=== PATIENT | female | born 1965 | race Caucasian/White ===

== ENCOUNTER 2018-06-30 17:08 | Emergency (ER) | payer BC ==
[~2018-06-30] VITALS: Ht 162.5 cm; Wt 58.1 kg
[2018-06-30] MEDS ORDERED: ANTIBIOTIC28.4 GM T (18:39)
== END 2018-06-30 18:42 | disposition home or self-care (01) ==
LOC: ED 17:08
DX: S90.31XA Contusion of right foot, initial encounter (principal); Z91.040 Latex allergy status; W17.2XXA Fall into hole, initial encounter; Y93.01 Activity, walking, marching and hiking; Y92.488 Other paved roadways as the place of occurrence of the external cause; Y99.8 Other external cause status

== ENCOUNTER 2020-03-20 10:49 | Emergency (ER) | payer BC ==
[~2020-03-20] VITALS: Wt 61.2 kg
[~2020-03-20 10:49] MED LIST: ANTIBIOTIC28.4 GM T
[2020-03-20] MEDS ORDERED: CYCLOBENZAPRINE5 M3 PO (17:34)
[2020-03-20] MEDS ORDERED: IBUPROFEN600 MG PO ×2 (17:34→17:39)
== END 2020-03-20 17:47 | disposition home or self-care (01) ==
LOC: ED 10:49
DX: S16.1XXA Strain of muscle, fascia and tendon at neck level, initial encounter (principal); W11.XXXA Fall on and from ladder, initial encounter; Y93.89 Activity, other specified; Y92.89 Other specified places as the place of occurrence of the external cause; Y99.8 Other external cause status